=== PATIENT | female | born 1950 | race Caucasian/White ===

== ENCOUNTER → 2016-09-04 | Outpatient (CLI) | payer MEDICARE, OTHER ==
--- NOTE | 2016-09-05 09:40 | MAM ---
EXAM DESCRIPTION: MAMMO BREAST SCREENING BILATERAL CAD, images were reviewed with CAD technology, R2 computer-aided detection. CLINICAL HISTORY: [facility]. COMPARISON: 2012. FINDINGS: Routine views are obtained. Scattered glandular pattern. No dominant mass, architectural distortion or clustered microcalcification.. IMPRESSION: Benign exam. BIRAD CATEGORY: 2 BENIGN RECOMMENDATIONS: FOLLOW-UP: Routine screening mammogram in one year. According to the [employer], yearly mammograms are recommended starting at age 40 and continuing as long as a woman is in good health. Any breast change noted on a breast self-exam should be reported promptly to the patient's healthcare provider. Breast MRI is recommended for women with an approximately 20-25% or greater lifetime risk of breast cancer, including women with a strong family history of breast or ovarian cancer and women who have been treated for Hodgkin's disease. Electronically signed by: Alba Hirsch 09/05/2016 09:38
== END | disposition home or self-care (01) ==
LOC: MAMMO 13:39
PROVIDERS: ATTEND Family Medicine
DX: Z12.31 Encounter for screening mammogram for malignant neoplasm of breast (principal)
CPT/HCPCS: 77067; G0202

== ENCOUNTER 2016-09-15 18:58 | Emergency (ER) | payer MEDICARE, OTHER ==
[2016-09-15] MEDS ORDERED: IPRATROPIUM/ALBUTEROL 3 ML VIAL NEB ONE ×2 (19:03→19:09)
[2016-09-15 19:07] VITALS: BP 119/98; TEMP 98.2
[2016-09-15 19:30] VITALS: O2SAT 94
--- NOTE | 2016-09-15 21:18 | ED.PDOC ---
History of Present Illness - General Chief Complaint: Respiratory Problem Stated Complaint: SOB Time Seen by Provider: 09/15/16 21:11 Source: patient Additional Information: PT C/O SOB AND WHEEZING ONSET TODAY. HAS CHRONIC ASTHMA WHICH HAS BEEN UNDER GOOD CONTROL, HOWEVER IS CURRENTLY BEING TREATED WITH ZITHROMAX FOR BRONCHITIS - History of Present Illness Timing/Duration: 1-3 hours Severity: moderate Improving Factors: nothing Worsening Factors: nothing Associated Symptoms: cough, shortness of breath Allergies/Adverse Reactions: Allergies NO KNOWN ALLERGY Allergy (Verified 01/18/16 13:16) Home Medications: Ambulatory Orders Albuterol Inhaler [Ventolin Hfa Inhaler] 1 puff INH PRN PRN 03/24/15 Albuterol Sulfate Nebs [Proventil Nebs] 2.5 mg INH PRN PRN 03/24/15 Esomeprazole Magnesium [Nexium] 40 mg PO DAILY 03/24/15 Metoprolol Succinate [Metoprolol Succinate ER] 25 mg PO DAILY 03/24/15 Simvastatin [Zocor] 40 mg PO DAILY 03/24/15 Venlafaxine HCl [Effexor Tab] 150 mg PO DAILY 03/24/15 Zolpidem Tartrate [Ambien] 10 mg PO BEDTIME 03/24/15 Ibuprofen [Motrin Tab] 600 mg PO Q8H #20 tab 03/26/15 Review of Systems - Review of Systems Constitutional: Denies: chills, fever EENTM: Denies: ear pain, nose congestion, throat pain Respiratory: States: cough, short of breath, wheezing Cardiology: Denies: chest pain, palpitations Gastrointestinal/Abdominal: Denies: abdominal pain, nausea, vomiting Musculoskeletal: Denies: back pain, neck pain Skin: States: no symptoms reported Neurological: States: no symptoms reported Endocrine: States: no symptoms reported Hematologic/Lymphatic: States: no symptoms reported Past Medical History (General) - Patient Medical History Hx Seizures: No Hx Stroke: No Hx Asthma: Yes Hx of COPD: No Hx Cardiac Disorders: No Hx Congestive Heart Failure: No Hx Pacemaker: No Hx Hypertension: Yes Hx Diabetes: Yes Hx Cancer: No Hx MRSA: No Surgical History: appendectomy, Hysterectomy - Vaccination History Hx Tetanus, Diphtheria Vaccination: No Hx Influenza Vaccination: Yes Hx Pneumococcal Vaccination: Yes Immunizations Up to Date: No - Social History Hx Tobacco Use: No Hx Alcohol Use: No Hx Substance Use: No Hx Substance Use Treatment: No Hx Depression: No Hx Physical Abuse: No Hx Emotional Abuse: No Family Medical History - Family History Mother Living Status: Physical Exam - Physical Exam General Appearance: Alert, No apparent distress Eye Exam: bilateral normal Ears, Nose, Throat: hearing grossly normal, normal ENT inspection Neck: non-tender, full range of motion, supple Respiratory: lungs clear, normal breath sounds, no respiratory distress, other - NO WHEEZING Cardiovascular/Chest: regular rate, rhythm, no murmur Gastrointestinal/Abdominal: normal bowel sounds, non tender, soft, no organomegaly Back Exam: normal inspection, no CVA tenderness Extremity: normal range of motion, non-tender, normal inspection Neurologic: alert, normal mood/affect Skin Exam: normal color Lymphatic: no adenopathy Progress - Progress Progress: 09/15/16 21:55 BREATHING NL AFTER HHN. WANTS TO GO HOME. CTA, NO W/R/R Departure - Departure Clinical Impression: Acute bronchospasm, Bronchitis HTN (hypertension) Qualifiers: Hypertension type: essential hypertension Qualifier Code: (I10) Essential ( primary) hypertension Time of Disposition: 21:17 Disposition: Discharge to Home or Self Care Condition: Good Departure Forms: Patient Portal Self Enrollment Instructions: Acute Bronchitis, DI for Asthma -- Adult Referrals: Erwin Abraham MD [Primary Care Provider] - 1-2 Weeks Home Medications: Ambulatory Orders Albuterol Inhaler [Ventolin Hfa Inhaler] 1 puff INH PRN PRN 03/24/15 Albuterol Sulfate Nebs [Proventil Nebs] 2.5 mg INH PRN PRN 03/24/15 Esomeprazole Magnesium [Nexium] 40 mg PO DAILY 03/24/15 Metoprolol Succinate [Metoprolol Succinate ER] 25 mg PO DAILY 03/24/15 Simvastatin [Zocor] 40 mg PO DAILY 03/24/15 Venlafaxine HCl [Effexor Tab] 150 mg PO DAILY 03/24/15 Zolpidem Tartrate [Ambien] 10 mg PO BEDTIME 03/24/15 Ibuprofen [Motrin Tab] 600 mg PO Q8H #20 tab 03/26/15
== END 2016-09-15 21:23 | disposition home or self-care (01) ==
LOC: ER 18:58
DX: J20.9 Acute bronchitis, unspecified (principal); I10 Essential (primary) hypertension; E11.9 Type 2 diabetes mellitus without complications; J45.909 Unspecified asthma, uncomplicated; Z79.899 Other long term (current) drug therapy

== ENCOUNTER → 2017-02-14 | Outpatient (CLI) | payer MEDICARE, OTHER | LOC: GMAB 11:06 | PROVIDERS: ATTEND Family Medicine | DX: I10 Essential (primary) hypertension (principal) ==

== ENCOUNTER → 2018-02-15 | Outpatient (CLI) | payer MEDICARE, OTHER | LOC: GMAE 10:49 | PROVIDERS: ATTEND Family Medicine | DX: I10 Essential (primary) hypertension (principal) ==

== ENCOUNTER 2018-02-21 05:50 | Day surgery (SDC) | payer MEDICARE, OTHER ==
[2018-02-21] MEDS ORDERED: LACTATED RINGERS 1,000 ML ONE (06:37)
[2018-02-21] MEDS ORDERED: PROPOFOL 200 MG/20 ML VIAL IV ONE (07:00)
[2018-02-21] MEDS ORDERED: LIDOCAINE 1% 10 ML VIAL INJ ONE (07:00)
[2018-02-21 11:39] VITALS: TEMP 96.8
[2018-02-21 11:40] VITALS: BP 120/84; O2SAT 98
--- NOTE | 2018-02-22 15:51 | OP ---
DATE OF PROCEDURE: 02/21/18 PREOPERATIVE DIAGNOSIS: 1. Screening for colorectal cancer. POSTOPERATIVE DIAGNOSIS: 1. Significant external hemorrhoids. 2. Scattered mild sigmoid diverticulosis. PROCEDURE: 1. Colonoscopy. SURGEON: Sergo Gr M.D. ANESTHESIA: Monitored anesthesia care. PREPARATION: Fair. COMPLICATIONS: None. INDICATION FOR EXAMINATION: The patient is a 67 year-old female here for screening colonoscopy. PROCEDURE IN DETAIL: The patient was counseled regarding the major risks and benefits associated with the procedure. The patient verbalized understanding and agreement with the same and all questions were answered to the patient's satisfaction. After adequate sedation was achieved by the nurse prototype machinist, the patient was placed in the left lateral decubitus position and a digital rectal exam was performed. This examination revealed significant external hemorrhoids. A flexible adult colonoscope was then lubricated, inserted into the rectum, and advanced under direct visualization to the level of the cecum, which was identified by both visual and anatomic landmarks. The scope was then fully withdrawn while carefully examining the mucosa from the cecum to the anal canal. The colonic mucosa appeared to be within normal limits. Some scattered diverticulosis of the sigmoid colon was noted incidentally. The scope was completely retrieved upon exiting the anal canal and the procedure was terminated. The patient tolerated the procedure well without immediate complications and was transferred to the recovery room in stable condition. ENDOSCOPIC DIAGNOSIS: 1. Scattered diverticulosis of the sigmoid colon without evidence of perforation or diverticulitis. RECOMMENDATIONS: 1. Repeat colonoscopy in 10 years if deemed to be clinically in need of this based on health status at that time as the patient will be 77 years old. 2. Maintain a high fiber diet. 3. Symptomatic care for hemorrhoids as needed. 4. The patient may followup with me in the clinic for any concerns or for any questions. #[id number] [facility]OSPITALUriel
== END 2018-02-21 08:45 | disposition home or self-care (01) ==
LOC: AMB 05:50
PROVIDERS: ATTEND Family Medicine
DX: Z12.11 Encounter for screening for malignant neoplasm of colon (principal); K57.30 Diverticulosis of large intestine without perforation or abscess without bleeding; K64.4 Residual hemorrhoidal skin tags; F51.04 Psychophysiologic insomnia; I10 Essential (primary) hypertension; E78.5 Hyperlipidemia, unspecified; J45.909 Unspecified asthma, uncomplicated; K21.9 Gastro-esophageal reflux disease without esophagitis; M81.0 Age-related osteoporosis without current pathological fracture; Z87.891 Personal history of nicotine dependence; Z79.899 Other long term (current) drug therapy
CPT/HCPCS: 00812; G0121; J3490; J7120

== ENCOUNTER → 2018-02-26 | Outpatient (CLI) | payer MEDICARE, OTHER ==
--- NOTE | 2018-02-28 11:57 | MAM ---
EXAM DESCRIPTION: 3D Screening BILATERAL : Digital Mammography. CLINICAL HISTORY: 67 years Female SCREENING . No complaints. Family history of ovarian cancer. No family history of breast cancer. Childbirth. Postmenopausal. No HRT. Benign left breast biopsy. COMPARISON: 2-D digital screening bilateral study 09/04/2016.. Report from prior examination also reviewed. TECHNIQUE: Bilateral CC and MLO projection full-field images, 3-D tomosynthesis digital mammographic technique. CAD not utilized. FINDINGS: The breast parenchymal density pattern is: Scattered areas of fibroglandular density. No skin thickening or nipple retraction. Bilateral accessory breast tissue in the axilla stable since the prior study. Bilateral solitary microcalcifications. Bilateral intramammary lymph nodes. No new focal, stellate mass or density, focal asymmetry , and no suspicious microcalcifications bilaterally. Stable mammograms compared to prior study, taking into account differences in mammographic technique. IMPRESSION: BI-RADS CATEGORY: 2 - BENIGN FINDINGS. FOLLOW UP: Routine digital bilateral screening, one year interval from January 2018. Written communication explaining the IMPRESSION and follow-up, will be mailed to the patient and referring health care provider. According to the [employer], yearly mammograms are recommended starting at age 40 and continuing as long as a woman is in good health. Any breast change noted on a breast self-exam should be reported promptly to the patient's healthcare provider. Breast MRI is recommended for women with an approximately 20-25% or greater lifetime risk of breast cancer, including women with a strong family history of breast or ovarian cancer and women who have been treated for Hodgkin's disease. A negative mammographic report should not delay tissue diagnosis in patients with significant clinical history or physical findings. Extremely dense breast tissue limits the sensitivity of digital mammography. Electronically signed by: Antoni Sanchez MD 02/28/2018 11:56 AM CDT
== END ==
LOC: MAMMO 14:00
PROVIDERS: ATTEND Family Medicine
DX: Z12.31 Encounter for screening mammogram for malignant neoplasm of breast (principal)

== ENCOUNTER → 2018-08-29 | Outpatient (CLI) | payer MEDICARE, OTHER | LOC: GMAE 15:01 | PROVIDERS: ATTEND Family Medicine | DX: L29.9 Pruritus, unspecified (principal) ==

== ENCOUNTER → 2018-09-11 | Outpatient (CLI) | payer MEDICARE, OTHER | LOC: GMAE 16:50 | PROVIDERS: ATTEND Family Medicine | DX: R94.5 Abnormal results of liver function studies (principal) ==

== ENCOUNTER → 2019-03-11 | Outpatient (CLI) | payer MEDICARE, OTHER | LOC: GMAE 11:01 | PROVIDERS: ATTEND Family Medicine | DX: L29.8 Other pruritus (principal); I10 Essential (primary) hypertension; E11.8 Type 2 diabetes mellitus with unspecified complications; E78.2 Mixed hyperlipidemia; Z79.899 Other long term (current) drug therapy ==

== ENCOUNTER → 2019-04-16 | Outpatient (CLI) | payer MEDICARE, OTHER | LOC: GMAE 14:54 | PROVIDERS: ATTEND Family Medicine | DX: L20.89 Other atopic dermatitis (principal) ==

== ENCOUNTER → 2019-06-24 | Outpatient (CLI) | payer MEDICARE, OTHER | LOC: GMAE 14:26 | PROVIDERS: ATTEND Family Medicine | DX: L43.8 Other lichen planus (principal); L20.89 Other atopic dermatitis; Z79.899 Other long term (current) drug therapy ==

== ENCOUNTER → 2020-04-13 | Outpatient (CLI) | payer MEDICARE, OTHER | LOC: GMAE 10:28 | PROVIDERS: ATTEND Family Medicine | DX: D50.8 Other iron deficiency anemias (principal); I10 Essential (primary) hypertension; E55.9 Vitamin D deficiency, unspecified; E11.8 Type 2 diabetes mellitus with unspecified complications; E78.2 Mixed hyperlipidemia ==

== ENCOUNTER → 2020-08-20 | Outpatient (CLI) | payer MEDICARE, OTHER | LOC: GMAE 12:44 | PROVIDERS: ATTEND Family Medicine | DX: D50.8 Other iron deficiency anemias (principal) ==

== ENCOUNTER → 2020-09-01 | Outpatient (CLI) | payer MEDICARE, OTHER ==
[~2020-09-01] MED LIST: ALBUTEROL SULFATE 2.5 MG/3 ML VIAL NEB ONE
== END ==
LOC: RESP 10:26
PROVIDERS: ATTEND Family Medicine
DX: J45.41 Moderate persistent asthma with (acute) exacerbation (principal)
CPT/HCPCS: 94060; J7611